=== PATIENT | female | born 1940 | race Caucasian/White ===

== ENCOUNTER 2019-01-25 12:10 | Inpatient (IN) ==
--- NOTE | 2019-01-25 12:58 | Diag Imaging Result Doc PS360 ---
CT HEAD W/O CONTRAST - 01/25/2019 INDICATION: ams COMPARISON: None FINDINGS: There is mild diffuse cerebral atrophy. There is moderate patchy cerebral white matter lucency compatible with chronic microvascular ischemia. No intracranial mass or hemorrhage. The skull is intact. The sinuses, mastoids, and middle ears are clear. IMPRESSION: Cerebral atrophy and chronic appearing microvascular ischemia. No acute process. This exam was performed using automated exposure control, adjustment of mA or kV according to patient size, and/or use of iterative reconstruction technique Electronically signed by Jose Guadalupe De La Garza 01/25/2019 12:56 PM
[2019-01-25] MEDS ORDERED: NS 1,000 ML IV ONE (14:36)
[2019-01-25 14:53] LABS: BASO# 0.19 X1000 (0.0-0.2); BASO% 1.4 % (0.0-0.8); HEMATOCRIT 30.7 % (37.0-47.0); HEMOGLOBIN 11.3 g/dL (12.0-16.0); LYMPH# 4.49 X1000 (1.2-3.4); LYMPH% 32.4 % (20.5-51.1); MCH 30.4 PG (27-31); MCHC 36.8 g/dL (33-37); MCV 82.5 FL (81-99); MONO# 1.04 X1000 (0.11-0.59); MONO% 7.5 % (1.7-9.3); MPV 11.6 FL (7.4-10.4); NEUT# 8.13 X1000 (1.4-6.5); NEUT% 58.7 % (42.2-75.2); PLT 155 X1000 (130-400); RBC 3.72 XMIL (4.2-5.4); RDW 15.3 % (11.5-14.5); WBC 13.85 X1000 (4.8-10.8)
[2019-01-25] MEDS ORDERED: D50W SYRINGE IV ONE (14:58)
[2019-01-25 15:01] LABS: ALB/GLOB RATIO 0.5; CALCIUM 7.4 mg/dL (8.8-10.2); CREATININE 1.7 mg/dL (0.5-0.9); POTASSIUM 3.9 mmol/L (3.5-5.1); TOTAL BILIRUBIN 1.19 mg/dL (0.20-1.00); TOTAL PROTEIN 5.9 g/dL (6.3-8.3)
--- NOTE | 2019-01-25 15:05 | EKG Report ---
Test Performed on : 01/25/2019 1:09:31 PM Test Reason : ams Blood Pressure : / mmHG Vent. Rate : 075 BPM Atrial Rate : 075 BPM P-R Int : 160 ms QRS Dur : 064 ms QT Int : 332 ms P-R-T Axes : 061 058 127 degrees QTc Int : 370 ms Normal sinus rhythm. Low voltage QRS Septal infarct (cited on or before 27-NOV-2018) ST & T wave abnormality, consider inferior ischemia Abnormal ECG When compared with ECG of 27-NOV-2018 16:48, (Unconfirmed) premature atrial complexes. are no longer present T wave inversion now evident in Inferior leads Nonspecific T wave abnormality, worse in Lateral leads Unconfirmed Result
[2019-01-25 15:11] LABS: URINE SOURCE CATH
[2019-01-25 15:13] LABS: BILIRUBIN URINE NEGATIVE (NEGATIVE); BLOOD URINE SMALL (NEGATIVE); COLOR YELLOW; GLUCOSE URINE NEGATIVE (NEGATIVE); KETONE URINE NEGATIVE (NEGATIVE); LEUKOCYTES URINE LARGE (NEGATIVE); NITRITE URINE POSITIVE (NEGATIVE); PROTEIN URINE 50 mg/dL (NEGATIVE); SP GRAVITY URINE 1.014; TURBIDITY URINE TURBID (CLEAR); UROBILINOGEN URINE NORMAL (NORMAL)
[2019-01-25 15:14] LABS: UR EPITHELIAL CELLS <10 /HPF (<10); URINE BACTERIA 4+ /HPF; URINE RBC <10 /HPF (<10); URINE WBC TNTC /HPF (<10)
[2019-01-25] MEDS ORDERED: ROCEPHIN 1 GM in NS 50 ML IV ONE (15:24)
[2019-01-25 15:39] LABS: BASO 1 % (0-1); LYMPHS 10 % (21-51); MONO 3 % (1-9); SEGS 86 % (42-75)
[2019-01-25 15:40] LABS: ANISOCYTOSIS OCCASIONAL; LARGE PLATELETS OCCASIONAL; TARGET CELLS OCCASIONAL
[2019-01-25] MEDS: LACTULOSE PO ONE (15:45)
[2019-01-25] MEDS ORDERED: NS 500 ML IV ONE (16:14)
--- NOTE | 2019-01-25 16:14 | PROVIDER DOCUMENTATION ---
This chart was entered by eSra Joya Scribe, acting as scribe for Pedrito Berry MD. HPI-Neurological Disorder - General Chief Complaint: Altered Mental Status Stated Complaint: AMS Time Seen by Provider: 01/25/19 14:25 Source: patient, family (son) Allergies/Adverse Reactions: Patient Allergies Allergy/AdvReac Type Severity Reaction Status Date / Time pentazocine lactate * Allergy Mild RASH Verified 01/25/19 13:01 [From Talwin] rofecoxib [From Vioxx] Allergy Mild RASH Verified 01/25/19 13:01 sulfamethoxazole Allergy Mild RASH Verified 01/25/19 13:01 [From Septra] trimethoprim [From Septra] Allergy Mild RASH Verified 01/25/19 13:01 Sulfa (Sulfonamide Allergy RASH Verified 01/25/19 13:01 Antibiotics) Home Medications: Home Medication List Medication Instructions Recorded Confirmed Last Taken Type Alprazolam [Xanax Xr] 0.5 mg PO DAILY 01/25/19 01/25/19 Unknown History Gabapentin 300 mg PO BID 01/25/19 01/25/19 Unknown History Hydrocodone Bit/Acetaminophen 1 tab PO Q4H PRN 01/25/19 01/25/19 Unknown History [Hydrocodon-Acetaminoph 7.5-325] Hydrocodone/Acetaminophen [[place] 1 tab PO Q6H PRN PRN 01/25/19 01/25/19 Unknown History 5-325 Tablet] Hydroxyzine HCl 25 mg PO TID 01/25/19 01/25/19 Unknown History Methocarbamol 750 mg PO TID 01/25/19 01/25/19 Unknown History Omeprazole 1 tab PO DAILY 01/25/19 01/25/19 Unknown History Ondansetron HCl [Zofran] 1 tab PO TID PRN 01/25/19 01/25/19 Unknown History Tizanidine [Zanaflex] 1 tab PO TID PRN 01/25/19 01/25/19 Unknown History - History of Present Illness-Neuro Nature of Presenting Problem: 78yof presents to ED by EMS cc AMS. SOn is at bedside and reports pt was last known to be normal around lunch yesterday. He reports pt usually turns phone off in the afternoon to take a nap and when he went to check on her this morning she was confused and weak. Pt denies pain. Pt has hx of back compression fracture 6 weeks ago and pancreatic cancer. Onset/Duration: reports: unsure Timing: reports: still present Approximate time patient was last seen normal?: 12:00 (yesterday) Character of Altered Mental Status: reports: disoriented, confused Any recent trauma/injury?: reports: other (compression fracture to back 6 weeks ago) Review of Systems - Adult - REVIEW OF SYSTEMS - ADULT Constitutional: reports: see HPI, roque. denies: chills, fever Eyes: reports: no symptoms reported Ears, Nose, Mouth & Throat: reports: no symptoms reported Cardiovascular: reports: no symptoms reported Respiratory: reports: see HPI. denies: shortness of breath, wheezing Gastrointestinal: reports: no symptoms reported Genitourinary: reports: no symptoms reported Musculoskeletal: reports: no symptoms reported Integumentary: reports: no symptoms reported Neurological: reports: see HPI, other (AMS) Psychiatric: reports: no symptoms reported Endocrine: reports: no symptoms reported Hematologic/Lymphatic: reports: no symptoms reported Allergic/Immunologic: reports: no symptoms reported All Other Systems: Reviewed and Negative Past History - Adult - PAST MEDICAL HISTORY-ADULT Review of Records: reports: Nursing Assessment Review, Medications Reviewed, Social history reviewed & non-contributory. Major Childhood Illnesses: reports: denies history Cardiovascular: reports: HTN, hyperlipidemia Respiratory: reports: asthma Gastrointestinal: reports: GERD Obstetrical/Gynecological: reports: denies history Genitourinary: reports: denies history Musculoskeletal: reports: denies history Neurological: reports: denies history Endocrine/Immune: reports: thyroid disorder Other Conditions: reports: denies history - PRIOR SURGERIES/PROCEDURES Surgical/Procedure History: reports: appendectomy, orthopedic (extremity) (right knee sx/right hand sx/bladder repair), other (cataract removal, bladder repair, right knee surgery) - IMMUNIZATION STATUS Childhood Immunizations: See Nurse Assessment Flu Vaccine: See Nurse Assessment - FAMILY HISTORY Family History: reviewed, not pertinent - SOCIAL HISTORY Smoking: denies Physical Exam- Neurological - Physical Exam-Neuro Initial Vital Signs Reviewed: Yes General Appearance: alert. negative: anxious, combative Eye Exam: bilateral eye: normal inspection, PERRL HENMT: normocephalic/atraumatic, moist mucous membranes. negative: angioedema Head Injury: no evidence of injury. negative: active bleeding Respiratory: chest non-tender, lungs clear, normal breath sounds. negative: stridor, wheezing Cardiovascular: normal peripheral pulses, regular rate, rhythm, no edema. negative: bradycardia, tachycardia Extremity: normal inspection. negative: deformity Integumentary: normal color. negative: diaphoresis, jaundice Psych/Mental Status: negative: anxious, disheveled Progress - PLAN OF CARE/RESULTS Progress/Plan/Lab Results: Vital Signs - 8 hr 01/25/19 12:22 01/25/19 12:23 01/25/19 12:24 Pulse Rate 72 73 75 Respiratory Rate 18 Blood Pressure 105/88 105/88 O2 Sat by Pulse Oximetry 97 100 100 01/25/19 12:30 01/25/19 12:47 01/25/19 13:00 Pulse Rate 72 75 75 Respiratory Rate Blood Pressure 108/67 O2 Sat by Pulse Oximetry 96 99 98 01/25/19 13:02 01/25/19 13:15 01/25/19 13:30 Pulse Rate 75 75 75 Respiratory Rate Blood Pressure 119/68 O2 Sat by Pulse Oximetry 99 99 97 01/25/19 13:32 01/25/19 13:45 01/25/19 14:00 Pulse Rate 74 74 76 Respiratory Rate Blood Pressure 109/60 O2 Sat by Pulse Oximetry 98 97 97 01/25/19 14:02 01/25/19 14:03 01/25/19 14:15 Pulse Rate 76 75 76 Respiratory Rate 16 Blood Pressure 108/69 108/69 O2 Sat by Pulse Oximetry 99 98 97 Laboratory Results - last 24 hr 01/25/19 01/25/19 01/25/19 12:27 14:15 14:15 WBC 13.85 H RBC 3.72 L Hgb 11.3 L Hct 30.7 L MCV 82.5 MCH 30.4 MCHC 36.8 RDW Std Deviation 15.3 H Plt Count 155 MPV 11.6 H Neut % (Auto) 58.7 Lymph % (Auto) 32.4 [place] % (Auto) 7.5 Eos % (Auto) 0.0 Baso % (Auto) 1.4 H Neut # (Auto) 8.13 H Lymph # (Auto) 4.49 H [place] # (Auto) 1.04 H Eos # (Auto) 0.00 Baso # (Auto) 0.19 Segmented Neutrophils 86 H Lymphocytes 10 L Monocytes 3 Basophils 1 Large Platelets OCCASIONAL Anisocytosis OCCASIONAL Target Cells OCCASIONAL Sodium 129 L Potassium 3.9 Chloride 99 Carbon Dioxide 19 L Anion Gap 11 BUN 19 Creatinine 1.7 H Estimated GFR/1.73 m2 29 BUN/Creatinine Ratio 11 Glucose 70 POC Glucose 60 L Calculated Osmolality 260 Calcium 7.4 L Total Bilirubin 1.19 H AST 42 H ALT 15 Alkaline Phosphatase 134 H Ammonia Total Protein 5.9 L Albumin 2.0 L Globulin 3.9 Albumin/Globulin Ratio 0.5 Urine Source Urine Color Urine Turbidity Urine pH Ur Specific [place] Urine Protein Ur Glucose (Stick) Ur Ketones (Stick) Urine Blood Urine Nitrite Urine Bilirubin Urobilinogen Dipstick Urine Leukocytes Urine WBC (Auto) Urine RBC (Auto) U Epithel Cells (Auto) Urine Bacteria (Auto) 01/25/19 01/25/19 14:43 14:55 WBC RBC Hgb Hct MCV MCH MCHC RDW Std Deviation Plt Count MPV Neut % (Auto) Lymph % (Auto) [place] % (Auto) Eos % (Auto) Baso % (Auto) Neut # (Auto) Lymph # (Auto) [place] # (Auto) Eos # (Auto) Baso # (Auto) Segmented Neutrophils Lymphocytes Monocytes Basophils Large Platelets Anisocytosis Target Cells Sodium Potassium Chloride Carbon Dioxide Anion Gap BUN Creatinine Estimated GFR/1.73 m2 BUN/Creatinine Ratio Glucose POC Glucose Calculated Osmolality Calcium Total Bilirubin AST ALT Alkaline Phosphatase Ammonia 161 H Total Protein Albumin Globulin Albumin/Globulin Ratio Urine Source CATH Urine Color YELLOW Urine Turbidity TURBID Urine pH 6.0 Ur Specific [place] 1.014 Urine Protein 50 A Ur Glucose (Stick) NEGATIVE Ur Ketones (Stick) NEGATIVE Urine Blood SMALL A Urine Nitrite POSITIVE A Urine Bilirubin NEGATIVE Urobilinogen Dipstick NORMAL Urine Leukocytes LARGE A Urine WBC (Auto) TNTC A Urine RBC (Auto) <10 U Epithel Cells (Auto) <10 Urine Bacteria (Auto) 4+ Orders Category Date Time Status Curtis Cath Insertion ORDERED Care 01/25/19 15:[address] HEAD W/O CONTRAST [CT] Stat Exams 01/25/19 12:27 Completed AMMONIA [CHEM] Stat Lab 01/25/19 14:43 Completed CBC WITH ELECTRONIC DIFF [HEME] Stat Lab 01/25/19 14:15 Completed COMPREHENSIVE METABOLIC PANEL [CHEM] Stat Lab 01/25/19 14:15 Completed LACTATE, PLASMA [CHEM] Stat Lab 01/25/19 16:14 Uncollected PT [PROTIME WITH INR] [COAG] Stat Lab 01/25/19 14:15 Received PTT [COAG] Stat Lab 01/25/19 14:15 Received URINALYSIS W/POSS RFLX CULT [URINALYSIS] Stat Lab 01/25/19 14:55 Completed URINE CULTURE [RM] Routine Lab 01/25/19 15:52 Received 0.9% Sodium Chloride Inj [Ns] 1,000 ml Med 01/25/19 14:36 Discontinued IV 999 mls/hr 0.9% Sodium Chloride Inj [Ns] 500 ml Med 01/25/19 16:14 Active IV 999 mls/hr CefTRIAXONE [Rocephin] 1 gm Med 01/25/19 15:24 Discontinued 0.9% Sodium Chloride Inj [Ns] 50 ml IV NOW Dextrose 50% Syringe [D50w Syringe] Med 01/25/19 14:58 Discontinued 50 ml IV NOW ONE Lactulose Med 01/25/19 15:45 Discontinued 30 ml PO NOW ONE EKG [EKG] Stat Ther 01/25/19 14:24 Draft Result Diagrams: 01/25/19 14:15 01/25/19 14:15 - EKG 1 Time of EKG reading by physician:: 13:09 EKG Read and Signed by:: Pedrito Berry EKG Interpretation (*Must complete 3 of following elements*): Abnormal (septal infarct; ST & T wave abnormailty, consider inferior ischemia) Rate: 75 Rhythm: nsr QRS: other (low voltage) - CT/MRI 1 CT Study: Head Impression: See EMR Report (MPRESSION: Cerebral atrophy and chronic appearing microvascular ischemia. No acute process. This exam was performed using automated exposure control, adjustment of mA or kV according to patient size, and/or use of iterative reconstruction technique Electronically signed by Jose Guadalupe De La Garza 01/25/2019 12:56 PM) - CONSULTS/PCP/HOSPITALIST Notification #1 *Consult/PCP/Hospitalist*: Tracey/HORTENCIA Time Discussed: 16:11 Consult Disposition: Admit (accepted pt) Departure - Departure Date of Disposition Decision: 01/25/19 Time of Disposition Decision: 16:13 DIAGNOSIS: Dehydration, Mass of pancreas, UTI (urinary tract infection), Serum ammonia increased Disposition: ADMITTED INPATIENT 09 Certified Medical Emergency: Emergent Condition: Fair Referrals and Follow-Ups: Toro Anderson MD [Primary Care Provider] - - Critical Care Note This patient required my direct & personal management of CC.: No Attestation - Physician/ YOSI Attestation Patient care was provided by Advanced Practice Provider:: No The physician spent face to face time with patient:: Yes Advanced Practice Provider documentation review:: Supervising physician onsite and consulted in the evaluation and care of this patient. The physician did have a face to face encounter with the patient. This chart was documented by the indicated scribe, (Sera Joya Scribe) and accurately reflects the services I performed and decisions made by me, Pedrito Berry MD, as attested by the provider's signature.
[2019-01-25 16:34] LABS: INR 1.89; PROTIME 22.2 Seconds (11.0-16.0); PTT 60.9 Seconds (22.3-41.8)
[2019-01-25] MEDS: KAYEXALATE PR ONE (16:43)
[2019-01-25] MEDS ORDERED: LACTULOSE PO ONE (17:16)
[2019-01-25] MEDS ORDERED: TYLENOL PO PRN (18:44)
[2019-01-25] MEDS: NS 1,000 ML IV SCH (19:39)
[2019-01-25] MEDS: FLAGYL 500 MG/NS 500 MG/100 ML IVPB IV SCH (20:37)
[2019-01-25] MEDS ORDERED: LACTULOSE MISC SCH (21:00)
--- NOTE | 2019-01-25 21:48 | HISTORY AND PHYSICAL ---
ADDENDUM: This patient is 78 years old. She has a complicated history associated with pancreatic cancer, for which she completed chemotherapy and she has had a Whipple procedure in the past. All of this has been accomplished in the [place] area at [facility]. Dr. Julien, I believe, is her oncologist, and that was several months ago, beginning of the year. Most recently, she has had a compression fracture about 6 weeks ago, and then she had kyphoplasty. Her son is unsure where it happened. He says it may have happened locally, but it could have also happened in the [facility]. No known liver issues. In the last 24 hours or since this morning, she took a nap and then was confused, weak, and was brought in for evaluation. She is jaundiced. She has elevated ammonia level. She is hypotensive, confused, coagulopathic, renal insufficiency, hyponatremic, UTI. On exam, she is pale and somewhat diaphoretic, although no fever, and has had progression in her hypotension despite IV fluids. WORKUP: 1. Hypotensive, transient, which may be related to sepsis versus dehydration. She does have a source of infection with a urinary tract infection. We will continue volume resuscitation and pressors if necessary, which I think may be necessary. Her renal insufficiency and liver dysfunction may also be consistent with transient hypotension and ischemic shock. 2. Acute liver injury. She does have abnormalities in her liver enzymes. Per her son, part of her liver was resected as part of the Whipple. Not sure at this point if there is recurrence, or if this is related to other issues, but she is hyperammonemic. We will treat with lactulose and Xifaxan once we are able to give her p.o. medications. We will give her Flagyl in the meantime. We will check abdominal ultrasound and follow number. We will continue intravenous fluids. Check urine electrolytes. Ultrasound is ordered. 3. Urinary tract infection. We will treat empirically with antibiotics. We will use cefepime in addition to Flagyl just because Rocephin has biliary issues. 4. Disposition. Condition is guarded. We will also get a GI opinion. Check a Tylenol level. This was a [id number] encounter with Dagmar Moy. cc: Mo Akhtar MD
--- NOTE | 2019-01-25 22:03 | HISTORY AND PHYSICAL ---
CHIEF COMPLAINT: Altered mental status. HPI: This is a 78-year-old female with a history of pancreatic cancer status post Whipple and with completed treatment in [place]. She presented to the emergency room via EMS with family members stating that she has been altered for the last 24 hours with the son stating that normally she turns her phone off to go to sleep the afternoon but today they could not get hold of her checked on her and found her altered. She was found to have an ammonia level of 161. PAST MEDICAL HISTORY: 1. Pancreatic cancer status post Whipple and completed treatment. 2. Recent compression fracture to the back. 3. Hypertension. 4. Hyperlipidemia. 5. Hypothyroid. PAST SURGICAL HISTORY: Hysterectomy, bladder surgery, cataract surgery, right knee surgery and Whipple. ALLERGIES: Vioxx, Ditropan and sulfa. CURRENT MEDICATIONS: A list will be obtained by the nursing staff and once verified will review and restart as appropriate. FAMILY HISTORY: There is no history of coronary artery disease or renal disease. REVIEW OF SYSTEMS: Unable to obtain due at present from patient, the son stated that she had no recent complaints. PHYSICAL EXAMINATION: A 78-year-old lady who is sitting up in the stretcher in the emergency room in no distress. VITAL SIGNS: Blood pressure is 113/69 with a heart rate of 74, respirations are 18, O2 saturations are 98-100%. HEENT: Pupils equal, round, react to light. EOMs are intact, sclerae anicteric. Head is normocephalic, atraumatic. Mucous membranes are moist. NECK: Supple with trachea midline. CARDIOVASCULAR: Regular rate and rhythm. S1 and S2 are appreciated. Has no lower extremity edema. Peripheral pulses are palpable x4 extremities. PULMONARY: Breath sounds are clear with no increased work of breathing noted. Chest rise falls symmetric respiration. GASTROINTESTINAL: Soft, nontender, nondistended with bowel sounds in all 4 quadrants. LABS: Hemoglobin 13.8 with hemoglobin 11.3, hematocrit 30.7, platelets 155,000. Sodium 129, potassium 3.9, BUN 19, creatinine 1.7, glucose of 60, ammonia is 161. Blood cultures and urine culture pending. CT of the head revealed cerebral atrophy and chronic appearing microvascular ischemia. No acute process. ASSESSMENT AND PLAN: 1. Pancreatic cancer status post Whipple and completed treatment. 2. Compression fracture approximately 6 weeks ago. 3. Hypertension, causes could be multifactorial, sepsis with a urine source versus dehydration. 4. Possible urinary tract infection. 5. Acute kidney injury. 6. Elevated ammonia levels. 7. Hypothyroid. 8. Hypotension. PLAN: The patient will be admitted to ICU for close monitoring. Will place her on telemetry, IV hydration with antibiotic coverage of Flagyl and cefepime. check urine electrolytes. Further treatments pending hospital course. Plan was discussed with Dr. Akhtar. Dictated by SUHA Moy for Mo Akhtar MD cc: SUHA Moy MD [facility]
[2019-01-25] MEDS: NON-FORMULARY MED PR SCH (23:25)
[2019-01-26] MEDS: FLAGYL 500 MG/NS 500 MG/100 ML IVPB IV SCH ×2 (02:33→08:24)
[2019-01-26] MEDS ORDERED: D50W SYRINGE IV PRN (03:34)
[2019-01-26] MEDS ORDERED: D50W SYRINGE IV ONE ×2 (03:37→03:42)
[2019-01-26] MEDS: NS 1,000 ML IV SCH (04:08)
[2019-01-26 05:29] LABS: INR 2.07; PROTIME 23.8 Seconds (11.0-16.0)
[2019-01-26 05:42] LABS: BASO# 0.01 X1000 (0.0-0.2); BASO% 0.1 % (0.0-0.8); HEMATOCRIT 27.4 % (37.0-47.0); HEMOGLOBIN 9.6 g/dL (12.0-16.0); MCH 28.9 PG (27-31); MCV 82.5 FL (81-99); MPV 10.9 FL (7.4-10.4); PLT 132 X1000 (130-400); RBC 3.34 XMIL (4.2-5.4); RDW 15.4 % (11.5-14.5); WBC 6.95 X1000 (4.8-10.8)
[2019-01-26 06:01] LABS: ALB/GLOB RATIO 0.4; ALBUMIN 1.6 g/dL (3.5-5.0); CALCIUM 7.1 mg/dL (8.8-10.2); CREATININE 1.5 mg/dL (0.5-0.9); POTASSIUM 3.3 mmol/L (3.5-5.1); TOTAL BILIRUBIN 0.87 mg/dL (0.20-1.00); TOTAL PROTEIN 5.3 g/dL (6.3-8.3)
[2019-01-26 07:21] LABS: BANDS 2 % (0-1); LARGE PLATELETS 2+; LYMPHS 14 % (21-51); MONO 2 % (1-9); SEGS 82 % (42-75)
[2019-01-26] MEDS: VITAMIN K 10 MG in NS 50 ML IV SCH (08:24)
[2019-01-26] MEDS: NON-FORMULARY MED PR SCH (09:53)
[2019-01-26] MEDS: CLINIMIX E 4.25%-5% SOLUTION 1,000 ML IV SCH (13:03)
[2019-01-26] MEDS: XIFAXAN PO SCH ×2 (13:04→21:24)
--- NOTE | 2019-01-26 13:07 | Diag Imaging Result Doc PS360 ---
CHEST-PORTABLE - 01/26/2019 INDICATION: dyspnea COMPARISON: 11/27/2018 FINDINGS: There is a stable left chest port in good position. The lungs are clear. Heart size is normal. No pneumothorax or pleural effusion. IMPRESSION: Negative exam. Electronically signed by Jose Guadalupe De La Garza 01/26/2019 1:04 PM
--- NOTE | 2019-01-26 13:12 | PROGRESS NOTE ---
DATE: 01/26/2019 SUBJECTIVE: The patient has no major complaints. OBJECTIVE: Vital Signs: Blood pressure is stable, has improved to 118/71, heart rate of 69, respiratory rate 16, temperature 97.7 degrees, saturating 100% on room air. Cardiovascular: Regular rate and rhythm. Pulmonary: Bilateral breath sounds. Clear to auscultation GI: Soft, nontender, nondistended. Bowel sounds are positive. Extremities: No clubbing or cyanosis. Lymphatic: No peripheral edema. Neurological: Nonfocal. LABORATORY DATA: White count is down to 6, hemoglobin and hematocrit 9 and 27 with normocytic indices, platelets of 132,000. INR is up to 2. Potassium is 3.3, creatinine is 1.5. AST of 33. Albumin is down to 1.6. Her ammonia level has come down. PROBLEM LIST: 1. Sepsis presumably, possibly a urinary source. I do not have a culture yet, but on urinalysis, she had gross pyuria and nitrate positive, so I think that is a likely source. We need to get a chest x-ray. We will continue antibiotics, and follow closely. 2. Acute liver injury or acute hepatitis. It is not clear if she has any liver injury in the past. Clinically, she is acting like she has cirrhosis with hypoalbuminemia, hyperammonemia, elevated INR, or at least some degree of liver dysfunction. She has no alcohol history. I have consulted Gastroenterology, and Dr. Gutierrez has ordered several tests. I am going to switch her to a CT of the abdomen and pelvis with oral contrast, only just because I want to look at her pancreatic situation a little bit more clearly since she has had surgery. Supposedly, she is cancer-free, but we also need to evaluate for liver metastases, which she has not had previously. Will also check a CA19-9. We are giving her Flagyl, but I suppose we can switch her to Xifaxan. 3. Urinary tract infection. She is on Rocephin. Will continue to monitor. I had recommended cefepime, but will see. I do not think she has got any gallbladder issues. 4. Coagulopathy. She is getting vitamin K. Will continue to monitor that. 5. Disposition. We need to get old records to see where things have gone. She sees Dr. Best Julien in [place], who is her primary oncologist. She does not have a local oncologist, so we will continue to monitor. cc: Mo Akhtar MD
[2019-01-26] MEDS: ZOFRAN IV PRN ×2 (13:31→21:31)
[2019-01-26] MEDS: MORPHINE IV PRN ×2 (14:30→21:38)
--- NOTE | 2019-01-26 14:40 | Diag Imaging Result Doc PS360 ---
EXAM: CT ABD/PELVIS W/ORAL CONT ONLY 01/26/2019 HISTORY: evaluate for cirrhosis, hx pancreatic cancer TECHNIQUE: This exam was performed using automated exposure control, adjustment of mA or kV according to patient size, and/or use of iterative reconstruction technique. COMMENT: The current study is compared with the previous examination of 02/13/2018. There is a hiatal hernia. There is a small left and even smaller right pleural effusions. These were not present on 02/13/2018. There is marked hepatic steatosis. This is worse than on the previous study. There is ascites which was not the case previously. The spleen is not enlarged. The adrenal glands are not enlarged. The kidneys are without evidence of hydronephrosis or nephrolithiasis. The aorta is not distended but is heavily calcified. There has apparently been a Whipple procedure. There is some pneumobilia in the left hepatic lobe. There is oral contrast throughout much of the small bowel and some in the cecum. There is diverticulosis in the sigmoid colon without definite diverticulitis. The urinary bladder is not distended and there is a Curtis catheter in the bladder. There is subcutaneous edema generally consistent with anasarca. There are no acute bony abnormalities. There has been previous kyphoplasty at L1. IMPRESSION: 1. Ascites, small pleural effusions, and anasarca. 2. Severe hepatic steatosis. 3. Diverticulosis coli. Electronically signed by Horacio Olivas 01/26/2019 2:38 PM
[2019-01-26] MEDS ORDERED: ROCEPHIN 1 GM in NS 50 ML IV SCH (15:00)
[2019-01-26] MEDS ORDERED: ZANAFLEX PO PRN (15:51)
[2019-01-26] MEDS ORDERED: VANCOMYCIN IV PER PHARMACY MISC SCH (16:00)
[2019-01-26] MEDS ORDERED: VANCOMYCIN 1,500 MG in NS 250 ML IV ONE (18:00)
[2019-01-26] MEDS: LACTULOSE PO SCH (21:23)
[2019-01-26] MEDS: NEURONTIN PO SCH (21:24)
[2019-01-27] MEDS ORDERED: ALBUMIN 25% IV ONE (00:03)
[2019-01-27] MEDS: CLINIMIX E 4.25%-5% SOLUTION 1,000 ML IV SCH ×2 (01:05→08:10)
[2019-01-27] MEDS: ZOFRAN IV PRN ×2 (01:50→08:08)
[2019-01-27] MEDS ORDERED: ROCEPHIN 1 GM in NS 50 ML IV SCH (03:00)
[2019-01-27 07:02] LABS: ALB/GLOB RATIO 0.8; ALBUMIN 2.5 g/dL (3.5-5.0); CALCIUM 7.9 mg/dL (8.8-10.2); CREATININE 1.2 mg/dL (0.5-0.9); MAGNESIUM 1.7 mg/dL (1.5-2.7); PHOSPHORUS 2.9 mg/dL (2.7-4.5); POTASSIUM 3.2 mmol/L (3.5-5.1); TOTAL BILIRUBIN 0.96 mg/dL (0.20-1.00); TOTAL PROTEIN 5.7 g/dL (6.3-8.3)
[2019-01-27 07:09] LABS: BASO# 0.02 X1000 (0.0-0.2); BASO% 0.3 % (0.0-0.8); HEMATOCRIT 24.8 % (37.0-47.0); HEMOGLOBIN 8.6 g/dL (12.0-16.0); LYMPH# 2.51 X1000 (1.2-3.4); LYMPH% 33.2 % (20.5-51.1); MCH 29.8 PG (27-31); MCHC 34.7 g/dL (33-37); MCV 85.8 FL (81-99); MONO# 1.05 X1000 (0.11-0.59); MONO% 13.9 % (1.7-9.3); MPV 10.8 FL (7.4-10.4); NEUT# 3.98 X1000 (1.4-6.5); NEUT% 52.6 % (42.2-75.2); PLT 120 X1000 (130-400); RBC 2.89 XMIL (4.2-5.4); RDW 15.5 % (11.5-14.5); WBC 7.56 X1000 (4.8-10.8)
--- NOTE | 2019-01-27 07:48 | GASTROENTEROLOGY CONSULTATION ---
DATE: 01/26/2019 REASON FOR CONSULTATION: Hepatic encephalopathy, abnormal LFTs, and rule out acute liver failure. HISTORY OF PRESENT ILLNESS: Ms. Zulma Busby is a 78-year-old woman with past medical history of pancreatic cancer status post chemotherapy and Whipple in the past as well as reported partial hepatectomy, hypertension, hyperlipidemia, and hypothyroidism, who presented yesterday with altered mental status. History obtained from the medical record given patient's altered mental status. Per report, the patient was noted to be altered over the last 24 hours. Family in the ER, reported the patient was normal up until about lunch to 2 days ago. On presentation, she was found to be altered with normal vital signs, and found to have elevated ammonia up to 461. Head CT was negative for acute intracranial hemorrhage or stroke. REVIEW OF SYSTEMS: Unable to obtain given patient's altered mental status. PAST MEDICAL HISTORY: History of pancreatic cancer status post Whipple and partial hepatectomy, hypertension, hyperlipidemia, hypothyroidism, and history of compression fracture requiring kyphoplasty. PAST SURGICAL HISTORY: Hysterectomy and bladder surgery, cataract surgery, right knee surgery, Whipple and kyphoplasty. HOME MEDICATIONS: 1. [place]. 2. Hydroxyzine. 3. Methocarbamol. 4. Omeprazole. 5. Zofran. 6. Xanax. 7. Gabapentin. 8. Tizanidine. ALLERGIES: 1. Vioxx. 2. Ditropan. 3. Sulfa. FAMILY HISTORY: Unable to obtain. SOCIAL HISTORY: Unable to obtain. PHYSICAL EXAMINATION: Vital Signs: Temperature 98.4, heart rate 79, respiratory rate 14, blood pressure 129/71, and O2 saturation 98% on room air. General: The patient is sleepy but arousable. She is alert and oriented x2, not to year, not to date. HEENT: Sclerae anicteric. Moist mucous membranes. Extraocular motor is intact.Neck: Supple. No JVD or lymphadenopathy. Cardiac: Regular rate and rhythm. No murmurs. Lungs: Clear to auscultation bilaterally. No wheezing. Abdomen: Noted surgical scars. Nondistended. Minimal tenderness throughout. Bowel sounds are present. No rebound or guarding. Extremities: No clubbing, cyanosis, or edema. Neurologic: She has some asterixis on exam. LABORATORY: White count of 6.9 from 13.8 yesterday, hemoglobin 9.6 from 11.3 yesterday, platelets of 132,000, 2% bands. INR is 2.0 from 1.89 yesterday. Sodium 133, potassium 3.3, chloride 105, bicarb 17, BUN of 18, creatinine of 1.7, glucose of 106, total bilirubin of 0.87 from 1.19. AST 33, ALT of 13, alkaline phosphatase 112, ammonia 46 from 161, total protein of 5.3, albumin of 1.6, lactate of 1.1, and TSH of 2.47. UA shows large leukocytes and positive nitrates. Tylenol level was negative. IMAGING: Head CT shows no acute process. CT of the abdomen and pelvis show ascites, small pleural effusions, anasarca, severe hepatic steatosis, and diverticulosis coli. Chest x-ray is negative. ASSESSMENT AND PLAN: Ms. Zulma Busby is a 78-year-old woman with history of pancreatic cancer status post Whipple and reported partial hepatectomy, who presents with 1-day history of altered mental status in the setting of urinary tract infection and probable hepatic encephalopathy. CT of the abdomen and pelvis shows new onset ascites and small effusions and anasarca, and severe hepatic steatosis. Labs show abnormal LFTs with a 2 to 1 ratio of AST to ALT. Alkaline phosphatase is minimally elevated. 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 Unknown alcohol history as I am not able to obtain any collateral from family members at bedside. We will check hepatitis panel. However, further chronic liver disease workup will likely be negative given noted fatty liver on imaging. She is on lactulose enemas which we can transition to p.o. as tolerated. She is also on Rifaximin and ceftriaxone for urinary tract infection and vancomycin. I have put her on vitamin K to see if the component of her elevated INR with coagulopathy is related to malnutrition. Continue to treat her urinary tract infection as you are. She is currently on Clinimix which I am in favor of discontinuing while patient is unable to take p.o. Other labs notable, she has a low bicarb, and elevated creatinine from her normal baseline. Recommend giving her some albumin for fluid resuscitation over IV fluids. We will give her 50 g today and reassess. Thank you for this consult. We will follow with you. Please call with any questions or concerns. # Hepatic encephalopathy # Cirrhosis # Coagulopathy # UTI # Severe protein calorie malnutrition # NICHOLAS # Pancreatic cancer [facility]
[2019-01-27] MEDS ORDERED: KLOR-CON PO ONE (07:51)
[2019-01-27] MEDS: LACTULOSE PO SCH ×3 (08:02→23:08)
[2019-01-27] MEDS: NEURONTIN PO SCH ×3 (08:03→23:09)
[2019-01-27] MEDS: XANAX XR PO SCH (08:03)
[2019-01-27] MEDS: XIFAXAN PO SCH ×3 (08:03→23:09)
[2019-01-27] MEDS: VITAMIN K 10 MG in NS 50 ML IV SCH (08:10)
[2019-01-27 08:24] LABS: ANISOCYTOSIS 1+; LYMPHS 32 % (21-51); MICROCYTOSIS 1+; MONO 13 % (1-9); SEGS 55 % (42-75)
[2019-01-27] MEDS: MAXIPIME 1 GM in NS 50 ML IV SCH ×2 (08:31→20:07)
[2019-01-27] MEDS: POTASSIUM CHLORIDE 20 MEQ/SWI 20 MEQ/100 ML IVPB IV SCH ×2 (08:52→10:49)
[2019-01-27] MEDS ORDERED: CALMOSEPTINE OINTMENT TOP PRN (09:22)
[2019-01-27] MEDS: PHENERGAN IV PRN ×2 (09:56→23:26)
[2019-01-27] MEDS: SODIUM CHLORIDE 0.9% INJ PRN (09:56)
[2019-01-27 10:40] LABS: HEPATITIS PROFILE ACUTE SEE COMMENTS
[2019-01-27 11:08] LABS: INR 2.38; PROTIME 26.6 Seconds (11.0-16.0)
--- NOTE | 2019-01-27 11:19 | PROGRESS NOTE ---
DATE: 01/27/2019 SUBJECTIVE: The patient does not have any complaints. According to nursing staff, she is definitely more alert in comparing with yesterday. She said that she is in [facility]. OBJECTIVE: Vital Signs: Temperature 97.9 degrees, heart rate 70, respiratory rate 18, blood pressure 125/69, and O2 saturation 100% on room air. General: This is a chronically ill appearing 78-year-old female lying in bed in no acute distress. Cardiovascular: S1, S2 heard. No murmurs, gallops, or rubs. Regular rate and rhythm. Respiratory: Clear bilaterally to auscultation. No work up breathing or using accessory muscles. Abdomen: Soft. Nondistended. Bowel sounds present. No organomegaly. Extremities: No clubbing or cyanosis. Mild edema in both lower extremities. Neurological: Patient is awake today. Following commands. Moves 4 extremities spontaneously. LABORATORY DATA: White cell count 7.56, hemoglobin 8.6, hematocrit 24.8, and platelets 120,000. BUN 24, potassium 3.2 and creatinine 1.2. Phosphorus and magnesium are okay. The urine culture is positive for gram-negative rods. The blood culture is positive for gram- positive rods as well. ASSESSMENT AND PLAN: 1. Sepsis secondary to UTI. Urine culture show resolved gram-negative rods. The patient has been on ceftriaxone. I prefer to go ahead to change to cefepime considering his history of cancer. White cell count so far has normalized. As mentioned, it was 13.85 and now is 7.56. She is not spiking any fever. We will continue to monitor. Also, the blood cultures is positive 1 out of 2. At this point, we will continue with vancomycin. We will see what the final results of the culture shows. 2. Acute liver injury/acute hepatitis. It is not clear why this patient has cirrhosis, but the CT of the abdomen shows severe hepatic steatosis with ascites, small pleural effusion and anasarca. It looks like this patient could have CASANOVA. The patient is receiving lactulose and rifaximin for hepatic encephalopathy. Gastroenterology has been consulted. We will follow recommendations. 3. History of pancreatic cancer status post Whipple procedure aware. We will continue to monitor. 4. Hepatic encephalopathy. We will continue with rifaximin and lactulose. Clinically, the patient is getting better. 5. Coagulopathy. Will continue providing vitamin K. 6. Acute kidney injury. Creatinine continues to improve. Today is 1.2 and yesterday was 1.5. We will continue with the same management. 7. Disposition. At this point, we will keep this patient in the ICU today for better monitoring. cc: Holden Navarro MD MTDD
[2019-01-27] MEDS: MORPHINE IV PRN ×2 (11:52→23:20)
--- NOTE | 2019-01-27 14:26 | GASTROENTEROLOGY PROGRESS NOTE ---
DATE: 01/27/2019 SUBJECTIVE: Ms. Bedolla, is a 78-year-old female who was lying in bed, nursing care at the bedside. She complained of nausea and generalized abdominal pain. She is unable to tolerate clear liquids. She is on IV fluid clinimix and lipids. OBJECTIVE: Vital Signs: Temperature is 97.8 degrees, pulse is 72, respirations are 18, blood pressure 119/66, oxygen saturation is 98% on room air. General Appearance: She is alert, oriented x3, in no acute distress. HEENT: Pale conjunctivae. No icterus. PERRL. Neck: Supple. Lungs: Clear to auscultation bilaterally. No abnormal breath sounds. Cardiac: Regular rate and rhythm. No murmurs, rubs, or gallops heard on auscultation. Abdomen: Surgical incision, was Whipple procedure. Nondistended. She has generalized tenderness all over the abdomen. Active bowel sounds heard in all 4 quadrants. Extremities: No clubbing, cyanosis. Generalized edema in the lower extremities. Neurologic: Alert, oriented x3. Lab: WBCs 7.56, RBCs 2.89, hemoglobin is 8.6, hematocrit is 24.8, platelet count is 120,000, PT is 26.6, INR is 2.38. Sodium is 136, potassium is 3.2, chloride is 104, carbon dioxide 19, anion gap is 13, BUN is 16, creatinine is 1.2, glucose is 142, calcium is 7.9, phosphorus 2.9, magnesium 1.7. Total bilirubin is 0.96, AST is 27, ALT is 12, alkaline phosphate is 108. Urinalysis from 01/25/2019 showed a trace of protein, small amount of blood, positive nitrites, and large leukocytes. Urine culture was positive for Enterobacter aerogenes. Blood cultures positive for gram-positive rods. Imaging: Chest x-ray showed negative exam. CT of the abdomen and pelvis showed ascites, small pleural effusion, anasarca, severe hepatic steatosis, diverticulosis coli. CT of the head showed cerebral atrophy and chronic appearing microvascular ischemia. No acute process. IMPRESSION AND PLAN: 1. Sepsis. 2. Hepatic encephalopathy. 3. Pancreatic cancer. 4. Status post Whipple procedure at [facility] with Dr Mark Eller. 5. Urinary tract infection. 6. Anemia. 7. Coagulopathy PLAN: Patient is unable to keep her clear liquids. She is on Clinimix at 100 mL per hour and lipids. Antiemetics, Zofran and Phenergan for nausea and vomiting. Antibiotics, Xifaxan, Maxipime and vancomycin for UTI. The patient also has received potassium chloride IV at 50 mL per hour. Patient is getting lactulose ad Xifaxan for hepatic encephalopathy likely resulting from combination of Sepsis and UTI. She is getting Vitamin K 10mg in 50 ml NS IV for her coagulopathy. We will continue to monitor her CBC and BMP, continue to follow the plan of care of her PCP. This plan was discussed with Dr. Yu. Please call for any further questions or concerns. Dictated by SUHA Lei for Andrzej Yu MD cc: Andrzej Yu MD Patient seen and examined myself. I agree with the above plan of care. I have discussed the above with the patient and family at bedside and all questions were answered. Please call us with any further questions. MTDD
[2019-01-28] MEDS: CLINIMIX E 4.25%-5% SOLUTION 1,000 ML IV SCH ×4 (01:10→16:37)
[2019-01-28 06:42] LABS: INR 2.12; PROTIME 24.3 Seconds (11.0-16.0)
[2019-01-28 06:51] LABS: AGAP 6; ALB/GLOB RATIO 0.6; ALBUMIN 1.9 g/dL (3.5-5.0); ALKALINE PHOSPHATASE 91 U/L (32-104); BASO# 0.03 X1000 (0.0-0.2); BASO% 0.4 % (0.0-0.8); BUN 15 mg/dL (8-22); CALCIUM 7.9 mg/dL (8.8-10.2); CHLORIDE 105 mmol/L (98-107); COSMO 268; CREATININE 0.8 mg/dL (0.5-0.9); ESTIMATED GFR > 60; GLUCOSE 112 mg/dL (70-104); GOT 34 U/L (10-30); GPT 12 U/L (10-36); HEMATOCRIT 27.9 % (37.0-47.0); HEMOGLOBIN 9.6 g/dL (12.0-16.0); MCHC 34.4 g/dL (33-37); MCV 84.3 FL (81-99); MPV 10.6 FL (7.4-10.4); PLT 132 X1000 (130-400); RBC 3.31 XMIL (4.2-5.4); SODIUM 133 mmol/L (136-145); TCO2 22 mmol/L (25-35); TOTAL BILIRUBIN 0.88 mg/dL (0.20-1.00); TOTAL PROTEIN 5.2 g/dL (6.3-8.3); WBC 7.14 X1000 (4.8-10.8)
[2019-01-28 08:09] LABS: BANDS 2 % (0-1); LARGE PLATELETS 2+; LYMPHS 34 % (21-51); MONO 4 % (1-9); SEGS 54 % (42-75)
[2019-01-28] MEDS: VITAMIN K 10 MG in NS 50 ML IV SCH (08:52)
[2019-01-28] MEDS: MAXIPIME 1 GM in NS 50 ML IV SCH ×2 (08:52→20:50)
[2019-01-28] MEDS: NEURONTIN PO SCH ×2 (09:17→20:51)
[2019-01-28] MEDS: XANAX XR PO SCH (09:17)
[2019-01-28] MEDS: LACTULOSE PO SCH ×2 (09:17→17:41)
[2019-01-28] MEDS: XIFAXAN PO SCH ×2 (09:18→20:52)
[2019-01-28] MEDS: VANCOMYCIN 1 GM/NS 1 GM/250 ML IVPB IV SCH (10:57)
[2019-01-28] MEDS ORDERED: LACTULOSE MISC SCH ×3 (13:00→17:00)
--- NOTE | 2019-01-28 13:09 | GASTROENTEROLOGY PROGRESS NOTE ---
DATE: 01/28/2019 SUBJECTIVE: Ms. Bedolla 78 year old female, resting in bed, lethargic, not responding to any questions. Family at the bedside. Unable to fully assess the patient. Family mentioned that she has been the same since yesterday afternoon, refusing to eat, c/o nausea and vomiting. OBJECTIVE: Vital Signs: Temperature 98.3 degrees, pulses 70, respirations 15, blood pressure 125/74, and oxygen saturation 98% on room air. Weight 156.4 pounds, BMI 28.7. General: The patient is lethargic, and unable to assist the patient, but in no acute distress. HEENT: Pale conjunctivae. No icterus. PERRLA. Neck: Supple. Lungs: Clear to auscultation bilaterally. No abnormal breath sounds heard. Cardiac: Regular rat e and rhythm. No murmurs, rubs, or gallops heard on auscultation. Abdomen: Surgical incision post Whipple procedure. Nondistended. nontender, no guarding. Active bowel sounds heard in all 4 quadrants. Extremities: No clubbing or cyanosis. Generalized edema in the lower extremities. 2+ pedal pulses present bilaterally. Neurologic: Alert and oriented x 1 LABORATORY AND DIAGNOSTICS: WBCs 7.14, RBC 3.31, hemoglobin is 9.6, hematocrit 27.9, and platelets 132,000.PT is 24.3, INR 2.12. Sodium 133, potassium 4.2, chloride 105, carbon dioxide 22, BUN is 15, creatinine is 0.8, glucose 112, calcium is 7.9, AST is 34, and ALT is 12. Urine culture showed Enterobacter aerogenes, and blood culture showed gram-negative rods. Chest x-ray showed negative exam. Abdomen/pelvis CT showed ascites, small pleural effusion, and an eschar. Severe hepatic steatosis and diverticulosis coli. IMPRESSION AND PLAN: Sepsis Hepatic encephalopathy Pancreatic cancer status post Whipple surgery done in [place] UTI Anemia Coagulopathy PLAN: Patient diet has been advanced to GI soft diet but she is unable to tolerate, has nausea and vomiting per family and nursing staff. She is on IV fluids Clinimix and lipids for nutrition. Zofran and Phenergan for nausea and vomiting. She is unable to take PO lactulose, started her on lactulose enemas TID, also on xifaxan for her hepatic encephalopathy. She is getting vitamin K 10 mg 50 mL. for coagulopathy, we will continue to monitor CBC and BMP, continue to follow the plan of care of the primary care team. and would recommend consult for infectious disease team for her sepsis. This plan was discussed with Dr. Gutierrez. Please call us for any further questions or concerns. Dictated by SUHA Lei for Arnie Gutierrez MD Physician Attestation I have seen and examined the patient. I have discussed and reviewed the the note by Yvonne BORDEN and agree with findings and plan as documented. In brief, Ms. Zulma Bedolla is a 78 year old woman with history of pancreatic cancer s/p Whipple and partial hepatectomy earlier this year s/p chemotherapy completed 11/2018 who presented with sepsis and hepatic encephalopathy in the setting of UTI and GNR bacteremia. Recommend lactulose enemas if unable to take PO. Titrate for 2-3 BMs daily. Continue Xifaxan. Avoid sedating medications. Continue to treat underlying infection, which likely precipitated encephalopathy. Hyponatremia and NICHOLAS improved with fluid resuscitation. Anemia noted; no overt bleeding. She is coagulopathy and has severe protein calorie malnutrition. MTDD
--- NOTE | 2019-01-28 14:28 | PROGRESS NOTE ---
DATE: 01/28/2019 SUBJECTIVE: This is a 78-year-old with history of pancreatic cancer status Whipple procedure in [place]. Presented to the emergency room with EMS and family member stating that she had altered mental status for the last 24 hours. Her son stating that normally she returns her phone off to go to sleep in the afternoon, but today they could not get a hold of her and checked and found her mental status was altered. PAST MEDICAL HISTORY: 1. Pancreatic cancer status post Whipple procedure and completed treatment chemotherapy. 2. Recent compression fracture of the back. 3. Hypertension. 4. Hyperlipidemia. 5. Hypothyroidism. PAST SURGICAL HISTORY: Hysterectomy, bladder surgery, cataract surgery, right knee surgery and Whipple procedure. Admitted with pancreatic cancer status post Whipple's and completed treatment, history of compression fracture 6 weeks ago, altered mental status. She did have elevated ammonia level. She has a history of hypothyroidism in the past. Abdominal and pelvic CT, ascites, small pleural effusions, anasarca, severe hepatic steatosis and diverticulosis coli. Her chest x-ray on 01/26/2019 was negative. No sign of infiltrates. GI consultation with Dr. Gutierrez, he felt she had pancreatic cancer, status post Whipple, reported partial hepatectomy, 1-day history of altered mental status. She did have an elevated ammonia level. Her labs show LFTs with 2:1 ratio of AST to ALT, alkaline phosphatase is minimally elevated. INR was 2 suggesting a possible alcoholic versus an CASANOVA cirrhosis. We are checking a hepatitis profile. Further chronic liver disease workup likely negative due to fatty liver change on imaging. She has lactose enemas, which we are going to transition to p.o. and she is on rifaximin and ceftriaxone for urinary tract infection, and vancomycin. They put her on some vitamin K to see if the component of elevated INR was related to malnutrition and treating her urinary tract infection. OBJECTIVE: General: On exam today, she is pretty lethargic. She does answer simple questions yes and no. Vital signs: Temperature 97.9 degrees, pulse 73, respirations 14, blood pressure 101/74. HEENT: Pupils are equal round. Lungs: Clear in all lung [place]. Cardiovascular: Regular rhythm and rate without murmur or S3. Abdomen: Soft. Skin: Warm and dry. Urine output: 1700 mL. ASSESSMENT AND PLAN: Sepsis, hepatic encephalopathy, pancreatic cancer status post Whipple procedure at [facility] in [place]. She has anemia and coagulopathy, urinary tract infection. She is able to eat and so advance to soft diet. She is on Clinimix to help with nutrition. She is on antibiotics Mefoxin for hepatic encephalopathy in combination. Feel like the altered mental status, encephalopathy is a combination of hepatic encephalopathy, sepsis and UTI. We are giving her vitamin K 10 mg daily and continue present antibiotics. Have advanced her diet. cc: Son Snow MD
[2019-01-28] MEDS ORDERED: BLISTEX MEDICATED BERRY LIP BALM TOP PRN (14:29)
[2019-01-28] MEDS ORDERED: NON-FORMULARY BULK MED PR PRN (17:06)
[2019-01-28] MEDS ORDERED: VANCOMYCIN 1,300 MG in NS 250 ML IV SCH (18:00)
[2019-01-29] MEDS: CLINIMIX E 4.25%-5% SOLUTION 1,000 ML IV SCH ×4 (00:36→20:16)
[2019-01-29 06:25] LABS: INR 2.15; PROTIME 24.6 Seconds (11.0-16.0)
[2019-01-29 06:35] LABS: AGAP 7; ALB/GLOB RATIO 0.5; ALBUMIN 1.8 g/dL (3.5-5.0); ALKALINE PHOSPHATASE 86 U/L (32-104); BUN 16 mg/dL (8-22); CALCIUM 8.1 mg/dL (8.8-10.2); CHLORIDE 106 mmol/L (98-107); COSMO 274; CREATININE 0.7 mg/dL (0.5-0.9); ESTIMATED GFR > 60; GLUCOSE 109 mg/dL (70-104); GOT 41 U/L (10-30); GPT 11 U/L (10-36); POTASSIUM 4.6 mmol/L (3.5-5.1); SODIUM 136 mmol/L (136-145); TCO2 23 mmol/L (25-35); TOTAL BILIRUBIN 0.98 mg/dL (0.20-1.00); TOTAL PROTEIN 5.1 g/dL (6.3-8.3)
[2019-01-29] MEDS: LACTULOSE PO SCH ×3 (08:00→16:10)
[2019-01-29] MEDS: MAXIPIME 1 GM in NS 50 ML IV SCH ×2 (08:04→20:16)
[2019-01-29] MEDS: NEURONTIN PO SCH ×2 (08:05→20:17)
[2019-01-29] MEDS: XANAX XR PO SCH (08:05)
[2019-01-29] MEDS: XIFAXAN PO SCH ×2 (08:05→20:17)
[2019-01-29] MEDS: VANCOMYCIN 1 GM/NS 1 GM/250 ML IVPB IV SCH (11:07)
--- NOTE | 2019-01-29 11:16 | PROGRESS NOTE ---
DATE: 01/29/2019 SUBJECTIVE: Ms. Bedolla is resting. She apparently was awake and is answering questions. She is sleeping again today. Her [id number] was at the bedside. OBJECTIVE: Vital Signs: Temperature 97.0 degrees, pulse 86, respirations 16, blood pressure 129/70. Eyes: Pupils are equal and round. Lungs: Lungs are clear in all lung [place]. Cardiovascular exam: Regular rhythm and rate without murmur or S3. Abdomen: Soft. Skin: Skin is warm and dry. ASSESSMENT AND PLAN: Sepsis, hepatic encephalopathy, pancreatic cancer status post Whipple's procedure at [facility] in [place]. She has a little bit of anemia, coagulopathy, urinary tract infection possible, so treating that. So, we have advanced her diet. She seems to be improving a little bit. She is on antibiotics for her hepatic encephalopathy. Trying to get her ammonia level down. CURRENT ORDERS: Xanax ER 0.5 mg daily, Clinimix 100 mg every hour, Neurontin 300 mg twice a day, cefepime 1 g q. 12 hours, Xifaxan 550 mg p.o. b.i.d., Zanaflex 4 mg p.o. t.i.d. p.r.n., vancomycin 1 g IV q. 24 hours. cc: Son Snow MD
--- NOTE | 2019-01-29 23:53 | PROVIDER PROGRESS NOTE ---
Progress Note S: No acute overnight events. Patient's mental status waxes and wanes per report. She is not answering questions today but is awake. O: T 98.0 HR 85 RR 18 BP 125/77 O2 98RA GEN: awake, chronically ill appearing, NAD HEENT: anicteric, MMM NECK: supple, no LAD CV: RRR, no murmurs PULM: CTAB anteriorly, no wheezing ABD: mildy distended, BS, mild TTP throughout, no rebound or guarding EXT: no WWP, no c/c NEURO: moving all extremities, patient will not answer orientation questions LABS: 01/29/19 01/29/19 04:30 04:30 INR 2.15 Sodium 136 Potassium 4.6 Chloride 106 Carbon Dioxide 23 L BUN 16 Creatinine 0.7 Glucose 109 H Total Bilirubin 0.98 AST 41 H ALT 11 Alkaline Phosphatase 86 Total Protein 5.1 L Albumin 1.8 L A/P Ms. Zulma Bedolla is a 78 year old woman with history of pancreatic cancer s/p Whipple and partial hepatectomy earlier this year s/p chemotherapy completed 11/2018 who presented with sepsis and hepatic encephalopathy in the setting of Enterobacter UTI and bacteremia. Her mental status has been waxing and waning. She has had some improvement with taking lactulose PO and by enema. She is also on Xifaxan. She may have a component of toxic encephalopathy in the setting of infection on top of her hepatic encephalopathy. Anemia stable without overt bleeding. LFTs downtrending. Coagulopathy unchanged. 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
[2019-01-30] MEDS: CLINIMIX E 4.25%-5% SOLUTION 1,000 ML IV SCH ×2 (06:04→16:22)
[2019-01-30] MEDS: MAXIPIME 1 GM in NS 50 ML IV SCH ×2 (08:46→20:38)
[2019-01-30] MEDS: LACTULOSE PO SCH ×4 (08:46→17:14)
[2019-01-30] MEDS: XANAX XR PO SCH (09:21)
[2019-01-30] MEDS: NEURONTIN PO SCH ×2 (09:21→22:45)
[2019-01-30] MEDS: XIFAXAN PO SCH ×2 (09:21→22:47)
[2019-01-30] MEDS: VANCOMYCIN 1 GM/NS 1 GM/250 ML IVPB IV SCH (11:15)
--- NOTE | 2019-01-30 11:22 | PROVIDER PROGRESS NOTE ---
Progress Note S: No acute overnight events. She continues to be lethargic. She was unable to take her medications this AM. She denies abdominal pain. O: Last Vital Signs Temp 97.6 F 01/30/19 08:32 Pulse 80 01/30/19 08:33 Resp 17 01/30/19 08:33 BP 133/74 01/30/19 08:33 Pulse Ox 96 01/30/19 08:33 Height 5 ft 2 in Weight 160 lb 3.2 oz GEN: lethargic, NAD, answers questions intermittently HEENT: anicteric, MMM NECK: supple, no LAD CV: RRR, no murmurs PULM: CTAB anteriorly, no wheezing ABD: mildy distended, BS, NT, no rebound or guarding EXT: no WWP, no c/c NEURO: moving all extremities, patient will not answer orientation questions LABS: AM labs pending A/P Ms. Zulma Bedolla is a 78 year old woman with history of pancreatic cancer s/p Whipple and partial hepatectomy earlier this year s/p chemotherapy completed 11/2018 who presented with sepsis and hepatic encephalopathy in the setting of Enterobacter UTI and bacteremia. Her mental status has been waxing and waning. She has had some improvement with taking lactulose PO and by enema. She is also on Xifaxan. She may have a component of toxic encephalopathy in the setting of infection. VSS. Order AM labs. If no improvement in mental status with treatment with antibiotics and lactulose, then consider neuro evaluation. Titrate lactulose enemas to have 3-4 BMs daily. 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
[2019-01-30 12:50] LABS: INR 2.11; PROTIME 24.1 Seconds (11.0-16.0)
[2019-01-30 12:56] LABS: AGAP 7; ALB/GLOB RATIO 0.6; ALBUMIN 2.1 g/dL (3.5-5.0); ALKALINE PHOSPHATASE 86 U/L (32-104); BUN 22 mg/dL (8-22); CALCIUM 8.2 mg/dL (8.8-10.2); CHLORIDE 106 mmol/L (98-107); COSMO 274; CREATININE 0.6 mg/dL (0.5-0.9); ESTIMATED GFR > 60; GLUCOSE 116 mg/dL (70-104); GOT 37 U/L (10-30); GPT 11 U/L (10-36); HEMATOCRIT 27.4 % (37.0-47.0); HEMOGLOBIN 9.4 g/dL (12.0-16.0); LYMPH# 4.38 X1000 (1.2-3.4); LYMPH% 47.1 % (20.5-51.1); MCH 29.9 PG (27-31); MCHC 34.3 g/dL (33-37); MCV 87.3 FL (81-99); MONO# 1.05 X1000 (0.11-0.59); MONO% 11.3 % (1.7-9.3); MPV 10.6 FL (7.4-10.4); NEUT# 3.87 X1000 (1.4-6.5); NEUT% 41.6 % (42.2-75.2); PLT 140 X1000 (130-400); POTASSIUM 4.8 mmol/L (3.5-5.1); RBC 3.14 XMIL (4.2-5.4); RDW 16.9 % (11.5-14.5); SODIUM 135 mmol/L (136-145); TCO2 22 mmol/L (25-35); TOTAL BILIRUBIN 0.88 mg/dL (0.20-1.00); TOTAL PROTEIN 5.8 g/dL (6.3-8.3)
[2019-01-30 13:02] LABS: LYMPHS 45 % (21-51); MONO 10 % (1-9); SEGS 45 % (42-75)
[2019-01-30 13:03] LABS: ANISOCYTOSIS 1+; LARGE PLATELETS OCCASIONAL; MICROCYTOSIS 1+; POLYCHROM OCCASIONAL
--- NOTE | 2019-01-30 13:38 | PROGRESS NOTE ---
DATE: 01/30/2019 Ms. Bedolla opened her eyes. She is moving all extremities. She seems to be comfortable, breathing comfortably. Temp 97.0 degrees, pulse 86, respirations 17, blood pressure 141/91. Pupils are equal and round. Lungs are clear in all lung [place]. Cardiovascular regular rhythm and rate without murmur or S3. Abdomen is soft. Skin is warm and dry. Urine output is 2400 mL. ASSESSMENT AND PLAN: 1. A 78-year-old with history of pancreatic cancer status post Whipple with partial hepatectomy earlier this year, status post chemotherapy completed on 12/14/2018, presented with sepsis and hepatic encephalopathy in the setting of Enterobacter UTI bacteremia. Her mental status has been waxing and waning. She seems a little more alert today with taking lactulose p.o. and by enema and also on Xifaxan. She may have a component of toxic encephalopathy instead of infection. Continue present measures. 2. 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 3. Pancreatic cancer. 4. UTI. 5. Enterobacter bacteremia. 6. Anemia. 7. Coagulopathy. 8. Severe protein calorie malnutrition. 9. We will continue present orders. I do not see any changes. She is on Clinimix 100 mL every hour, getting cefepime 1 g q. 12 hours, lactulose 30 mL p.o. t.i.d., Neurontin 300 mg b.i.d., Xifaxan 550 mg p.o. b.i.d., Zanaflex 4 mg p.o. t.i.d., vancomycin 1 g q. 24 hours. cc: Son Snow MD
[2019-01-31] MEDS: DUONEB (A & A) INH PRN (01:02)
[2019-01-31] MEDS: CLINIMIX E 4.25%-5% SOLUTION 1,000 ML IV SCH ×4 (01:10→17:03)
--- NOTE | 2019-01-31 06:35 | Diag Imaging Result Doc PS360 ---
CHEST-PORTABLE - 01/31/2019 INDICATION: Wheezing COMPARISON: 01/26/2019 FINDINGS: Stable left chest port in good position. Stable low lung volumes. The lungs are clear. Heart size is normal. No pneumothorax or pleural effusion. IMPRESSION: Negative exam. Electronically signed by Jose Guadalupe De La Garza 01/31/2019 6:33 AM
[2019-01-31] MEDS: MAXIPIME 1 GM in NS 50 ML IV SCH ×2 (08:13→20:11)
[2019-01-31] MEDS: LACTULOSE PO SCH ×3 (08:14→16:40)
[2019-01-31] MEDS: XIFAXAN PO SCH ×2 (08:32→20:11)
[2019-01-31] MEDS: XANAX XR PO SCH (08:32)
[2019-01-31] MEDS: NEURONTIN PO SCH ×2 (08:32→20:11)
[2019-01-31] MEDS: VITAMIN K 10 MG in NS 50 ML IV SCH (11:10)
[2019-01-31] MEDS: VANCOMYCIN 1 GM/NS 1 GM/250 ML IVPB IV SCH (11:11)
[2019-01-31] MEDS: PROTONIX IV SCH ×2 (11:14→21:45)
--- NOTE | 2019-01-31 13:56 | HEMO/ONC CONSULTATION ---
DATE: 01/31/2019 REASON FOR CONSULTATION: History of pancreatic cancer. HISTORY OF PRESENT ILLNESS: This is a 78-year-old female with a history of pancreatic cancer, status post Whipple. The patient completed treatment in [place] on 12/14/2018. She presented to the emergency room on 01/25/2019 by EMS. The patient found to be altered. In the ER, she had an ammonia level of 151. The patient was admitted to the ICU and subsequently had a gastroenterology consult. It was found that the patient most likely has sepsis from hepatic encephalopathy in the setting of Enterobacter UTI and bacteremia. The patient has continued to improve. GI is concerned that the patient may have cirrhosis of the liver and they wanted Dr. Andrea consulted to evaluate if the AMS is cancer-related or not. The patient does have an oncologist at [place]. PAST MEDICAL HISTORY: 1. Pancreatic cancer, status post Whipple and completed treatment. 2. Recent compression fracture of the back. 3. Hypertension. 4. Hyperlipidemia. 5. Hypothyroid. PAST SURGICAL HISTORY: Hysterectomy, bladder surgery, cataract surgery, right knee surgery, and Whipple. ALLERGIES: Vioxx, Ditropan, sulfa, [place]win. HOME MEDICATIONS: Xanax XR, gabapentin, hydrocodone 7.5, hydroxyzine, methocarbamol, omeprazole, ondansetron, Zanaflex. REVIEW OF SYSTEMS: Unable to obtain due to the patient's altered mental status. PHYSICAL EXAMINATION: Vital Signs: Temperature 97.5 degrees, pulse rate 74, respiratory rate 14, blood pressure 135/76, O2 saturation 98% on room air. She appears to be in 0/10 pain. HEENT: Sclerae are anicteric. PERRLA. Oral mucosa is dry. Respiratory: Lungs are clear to auscultation. Normal respiratory effort. Cardiovascular: Normal S1, S2. Heart rate and rhythm regular. GI: Abdomen is soft. Skin: Warm, dry, and intact. LABORATORY: No labs were drawn today. On 01/30/2019, WBCs 9.30, hemoglobin 9.4, hematocrit 27.4, platelet count 140,000. Total bilirubin 0.88. Hepatitis panel negative. RADIOLOGY: Chest x-ray, no abnormalities noted. ASSESSMENT: 1. Pancreatic cancer, status post Whipple and completed treatment, and partial hepatectomy earlier this year in [place]. She presented with sepsis and hepatic encephalopathy in the setting of Enterobacter urinary tract infection bacteremia. We will try to obtain records. 2. Altered mental status. Her mental status has been waxing and waning. She may have a component of toxic encephalopathy instead of infection. 3. 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 4. Urinary tract infection. 5. Enterobacter bacteremia. 6. Anemia. Dictated by SUHA Ward for Luis M Andrea MD cc: Luis M Andrea MD [facility]
--- NOTE | 2019-01-31 15:10 | GASTROENTEROLOGY PROGRESS NOTE ---
DATE: 01/31/2019 SUBJECTIVE: Ms. Bedolla 78 year old female resting in bed, lethargic, unable to assess. Family at the bedside stating that they have not seen any improvement in her for the past few days. She is refusing to eat, has no appetite but has denied any nausea or vomiting, had 1 bowel movement today which was liquid in consistency. OBJECTIVE: Vital Signs: Temperature 97.2 degrees, pulse is 80, respirations of 15, blood pressure is 127/72, oxygen saturation 100% on room air. Her weight is 143 pounds and her BMI is 29 kg/m2. HEENT: Pale conjunctivae. No icterus. PERRL. Neck: Supple. Lungs: Clear to auscultation bilaterally. No abnormal breath sounds heard. Cardiac: Regular rate and rhythm. No murmurs, gallops, or rubs heard on auscultation. Abdomen: Surgical incision post Whipple procedure, nondistended, nontender, No guarding. Active bowel sounds heard in all 4 quadrants. Extremities: No clubbing, no cyanosis. Generalized edema in the lower extremities. 2+ pedal pulses present bilaterally. Neurologic: Unable to assess LABORATORY DATA: WBC 9.30, RBC 3.4, hemoglobin is 9.4, hematocrit is 27.4, platelet count is 140,000. Her PT is 24.1, INR is 2.11. Sodium is 135, potassium is 4.8, chloride 103, carbon dioxide 22, anion gap is 7, BUN is 22, creatinine is 6. Her glucose is 116, calcium is 8.2, AST 37, ALT 11, alkaline phosphatase is 86. Chest x-ray showed negative exam. IMPRESSION AND PLAN: 1. Sepsis. 2. Hepatic encephalopathy. 3. Pancreatic cancer, status post Whipple surgery done in [place] s/p chemotherapy ending in 12-13. 4. Urinary tract infection. 5. Anemia. 6. Coagulopathy 7. Malnutrition PLAN: The patient is not able to tolerate her diet.We will continue with IV fluids, Clinimix, and lipids. Her nausea and vomiting has been improved, we will continue her Zofran and Phenergan PRN. She is on lactulose enema 3 times a day p.r.n., and she has p.o. 30 mL for her hepatic encephalopathy. She is also receiving Xifaxan 550 mg BID for her hepatic encephalopathy, antibiotics, vancomycin and Maxipime for sepsis. We have placed an oncology consult for her pancreatic cancer. Started her on Vitamin K 10 mg in 50 ml NS IV for her coagulopathy, and start GI prophylaxis with Protonix 40 mg IV BID as patient is slowly dropping Hc. We would suggest having a neurology consult, her neuro status is not improving /declining. We will continue to monitor her CBC and BMP ,continue to follow the plan of care of the primary care provider and the oncology team. This plan was discussed with Dr. Yu. Please call us for any further questions or concerns. Dictated by SUHA Lei for Andrzej Yu MD cc: Andrzej Yu MD I have seen and examined the patient myself and I agree with the above plan of care. I have discussed the above with the patient's family at bedside and all questions were answered. Please call us with any further questions MTDD
--- NOTE | 2019-01-31 18:20 | PROGRESS NOTE ---
DATE: 01/31/2019 SUBJECTIVE: Mrs. Drew was awake, and she was understanding so answering questions, moving all extremities. OBJECTIVE: Vital signs: Temperature 98.0 degrees, pulse 90, respirations 14, blood pressure 146/85. Eyes: Pupils are equal and round. Lungs: Clear in all lung [place]. Cardiovascular exam: Regular rhythm and rate without murmur or S3. Abdomen: Soft. Skin: Warm and dry. ASSESSMENT AND PLAN: 1. Pancreatic cancer status post Whipple's, completed treatment, partial hepatectomy earlier in the year presented with sepsis, hepatic encephalopathy, Enterobacter urinary tract infection. 2. Altered mental status, multifactorial, seems to maybe see a little improvement, does wax and wane. Treating her for hepatic encephalopathy with lactulose and Xifaxan. 3. It appears that she has probable nonalcoholic steatohepatitis cirrhosis. 4. Urinary tract infection. 5. Enterobacter bacteremia. 6. Anemia. 7. Coagulopathy. 8. Severe protein calorie malnutrition. I do not see anything to change at this point. cc: Son Snow MD
[2019-01-31] MEDS ORDERED: BENADRYL PO PRN (22:33)
[2019-02-01] MEDS: CLINIMIX E 4.25%-5% SOLUTION 1,000 ML IV SCH ×3 (07:06→20:02)
--- NOTE | 2019-02-01 10:02 | PROGRESS NOTE ---
DATE: 02/01/2019 SUBJECTIVE: Ms. Bedolla is awake. She said good morning. She is alert and oriented. She ate a little bit of breakfast. OBJECTIVE: Temperature 98.5 degrees, pulse 85, respirations 16, and blood pressure 137/89. Pupils are equal and round. Lungs are clear in all lung [place]. Regular rhythm and rate without murmur or S3. Urine output was 3400 mL. ASSESSMENT AND PLAN: 1. Pancreatic cancer status post Whipple's, completed treatment. Partial hepatectomy, and earlier in the year presented with sepsis. Hepatic encephalopathy, multifactorial. She has Enterobacter urinary tract infection. Overall doing much better. 2. Altered mental status. She is awake and improving. She is pleasant. 3. Probable non alcoholic steatohepatitis cirrhosis. 4. Urinary tract infection. 5. Enterobacter bacteremia. 6. Anemia. 7. Coagulopathy. 8. Severe protein calorie malnutrition. Encourage p.o. intake. She is on a soft diet. She is getting Clinimix 75 mL an hour. She is on cefepime 1 g q.12. She has Dilantin, which is running an IV and rifaximin 550 mg b.i.d. 9. Vancomycin 1 g IV q.24 hours. cc: Son Snow MD
[2019-02-01] MEDS: NEURONTIN PO SCH ×2 (10:06→20:02)
[2019-02-01] MEDS: SODIUM CHLORIDE 0.9% INJ SCH ×2 (10:06→20:02)
[2019-02-01] MEDS: MAXIPIME 1 GM in NS 50 ML IV SCH ×2 (10:06→20:02)
[2019-02-01] MEDS: XANAX XR PO SCH (10:06)
[2019-02-01] MEDS: XIFAXAN PO SCH ×2 (10:06→20:02)
[2019-02-01] MEDS: PROTONIX IV SCH ×2 (10:06→20:02)
[2019-02-01] MEDS: VITAMIN K 10 MG in NS 50 ML IV SCH (10:16)
[2019-02-01] MEDS: LACTULOSE PO SCH ×3 (10:16→17:55)
[2019-02-01] MEDS: VANCOMYCIN 1,500 MG in NS 250 ML IV SCH (12:33)
--- NOTE | 2019-02-01 14:49 | GASTROENTEROLOGY PROGRESS NOTE ---
DATE: 02/01/2019 SUBJECTIVE: Ms. Bedolla is a 78-year-old, female resting in bed. She was alert and oriented x2. Family at the bedside stated that she has been more responsive and was feeling better since last evening. She has been talking and she was able to eat a few bites of her breakfast. She denied any nausea or vomiting. She had a couple of bowel movements, which were liquid in consistency. OBJECTIVE: Vital Signs: Temperature 98.0 degrees, pulse was 90, respirations are 18, blood pressure is 118/87, oxygen saturation is 99 on room air. Her weight is 178.8 pounds. BMI is 32.8 kg/m2. General: She is alert, oriented x2, and in no acute distress. HEENT: There is pale conjunctivae and no icterus. PERRLA. Neck: Supple. Lungs: Clear to auscultation bilaterally. Normal breath sounds heard. Cardiac: Regular rate and rhythm. No murmurs, rubs, or gallops heard on auscultation. Abdomen: Surgical incision post Whipple procedure. Soft, Nondistended, nontender. No guarding. Bowel sounds heard in all 4 quadrants. Extremities: No clubbing, cyanosis. Generalized edema in the lower extremities. 2+ pedal pulses present bilaterally. Neurologic: Alert and oriented x2. Labs: WBCs 9.30, RBCs 3.14, hemoglobin is 9.4, hematocrit is 27.4, platelet count is 140,000. PTT is 24.1, INR is 2.11. Sodium 135, potassium 4.8, chloride 106, carbon dioxide 22, anion gap is 7, BUN is 22, creatinine is 6, glucose is 116. These labs are from 01/30/2019. Imaging: Chest x-ray showed negative exam. IMPRESSION: 1. Sepsis. 2. Hepatic encephalopathy. 3. Pancreatic cancer S/P Whipple surgery done in [place] 4. Urinary tract infection. 5. Anemia. 6. Severe protein malnutrition. 7. Coagulopathy PLAN: The patient was able to tolerate her breakfast. She had a few bites of food and denied any nausea or vomiting. We will continue with IV fluids, Clinimix, lipids for her nutrition. Her nausea and vomiting have been improved but we still continue Zofran and Phenergan PRN. She is on lactulose and Xifaxan for her encephalopathy. Her neurological status has been improving. She is alert and oriented x2. We will continue with her antibiotics, Maxipime and vancomycin a per her PCP for her sepsis. GI prophylaxis Protonix 40 mg IV BID, she is also on vitamin K 10 mg in normal saline at 50 mls/hour for her coagulopathy. We will continue to monitor her CBC, BMP and follow the plan of care per PCP and the oncologist. This plan was discussed with Dr. Prajapati. Please call us for any further questions or concerns. Dictated by SUHA Lei for Sveta Prajapati MD cc: Sveta Prajapati MD [facility]
[2019-02-01] MEDS: SODIUM CHLORIDE 0.9% INJ PRN (21:15)
[2019-02-01] MEDS: PHENERGAN IV PRN (21:15)
[2019-02-02] MEDS: CLINIMIX E 4.25%-5% SOLUTION 1,000 ML IV SCH ×2 (08:00→20:50)
[2019-02-02] MEDS: MAXIPIME 1 GM in NS 50 ML IV SCH ×2 (08:09→20:50)
[2019-02-02] MEDS: SODIUM CHLORIDE 0.9% INJ SCH ×2 (08:12→20:50)
[2019-02-02] MEDS: XANAX XR PO SCH (08:12)
[2019-02-02] MEDS: LACTULOSE PO SCH ×3 (08:12→16:41)
[2019-02-02] MEDS: PROTONIX IV SCH ×2 (08:12→20:50)
[2019-02-02] MEDS: XIFAXAN PO SCH ×2 (08:13→20:50)
[2019-02-02] MEDS: VITAMIN K 10 MG in NS 50 ML IV SCH (08:13)
[2019-02-02] MEDS: NEURONTIN PO SCH ×2 (08:13→20:50)
--- NOTE | 2019-02-02 10:27 | PROGRESS NOTE ---
DATE: 02/02/2019 SUBJECTIVE: Ms. Bedolla is awake and alert. She seemed to have a good night. Breathing comfortably. OBJECTIVE: Vital Signs: Temp 99.1 degrees, pulse 85, respirations 15, blood pressure 156/72. HEENT: Pupils are equal and round. Lungs: Clear in all lung [place]. Cardiovascular: Regular rhythm and rate without murmur or S3. Abdomen: Soft. Skin: Warm and dry. Urine output is almost 2 L, urine output good. ASSESSMENT AND PLAN: 1. Presented with sepsis. 2. Hepatic encephalopathy as well as other factors contributing to encephalopathy. 3. Pancreatic cancer, status post Whipple surgery done in [place] with partial hepatectomy. 4. Urinary tract infection. Seems to be improved. 5. Anemia, stable. 6. Severe protein malnutrition. 7. Coagulopathy. She is eating a little better. She seems to be more awake. She is on lactulose and Xifaxan. Continue physical therapy. She is on Maxipime and vancomycin, and on Protonix 40 mg twice a day. She may be able to move to the floor. Will see how she does. Continue soft gastrointestinal diet, present measures. cc: Son Snow MD
[2019-02-02] MEDS: VANCOMYCIN 1,500 MG in NS 250 ML IV SCH (12:04)
--- NOTE | 2019-02-02 12:52 | HEMO/ONC PROGRESS NOTE ---
DATE: 02/02/2019 SUBJECTIVE: Ms. Bedolla is sitting up in bed, eating breakfast. She states that she feels a lot better and that her appetite has returned. She has no complaints today. She is completely awake and alert. She had a good night's sleep. She has no complaints today. OBJECTIVE: Vital Signs: Temperature 99.1 degrees, pulse rate 84, respiratory rate 16, blood pressure 137/86, O2 saturation 94% on room air. The patient is in 0/10 pain. General: Elderly- appearing female in no acute distress. HEENT: Sclerae is anicteric. PERRLA. Oral mucosa is normal. Respiratory: Lungs are clear to auscultation. Normal respiratory effort. Cardiovascular: Normal S1, S2. Heart rate and rhythm is regular. Abdomen: Soft, nontender, nondistended. Skin: Warm and dry. No petechiae or ecchymosis noted. Neurological: Awake, alert, and oriented x3. No focal motor deficits. LABORATORY DATA: No labs drawn today. ASSESSMENT: 1. Pancreatic cancer, status post Whipple and completed treatment with partial hepatectomy earlier this year in [place]. The patient presented with sepsis and hepatic encephalopathy in the setting of Enterobacter urinary tract infection bacteremia. We have obtained the patient's records, and are aware of her prior treatments and plan of care. The patient has completed her chemotherapy in November, and has a 3-month followup appointment scheduled with her oncologist at [facility]. The patient seems interested in possibly pursuing further followup locally. 2. Altered mental status. This has resolved. This was most likely related to her toxic encephalopathy. 3. Disposition. We have offered to follow up with the patient regarding her cancer diagnosis. Please continue to follow management per medical and Gastroenterology. We will follow along peripherally as needed. Please let us know if you have any questions. Dictated by SUHA Ward for Luis M Andrea MD cc: Luis M Andrea MD [facility]
--- NOTE | 2019-02-02 13:57 | GASTROENTEROLOGY PROGRESS NOTE ---
DATE: 02/02/2019 SUBJECTIVE: Ms. Bedolla 78 year old female resting in bed. She was alert, oriented x3 and she was able to tolerate her breakfast well. She denied any nausea, vomiting, but had generalized abdominal tenderness. OBJECTIVE: Vital signs: Temperature 99.1 degrees, pulse is 84, respirations 16, blood pressure is 137/86, oxygen saturation is 94% on room air. General: She is alert, oriented x3, and in no acute distress. Answering questions appropriately. Her weight is 174.9, BMI is 32.1. HEENT: Pale conjunctivae. No icterus. PERRL. Neck: Supple. Lungs: Clear to auscultation bilaterally. Normal breath sounds heard. Cardiac: Regular rate and rhythm. No murmurs, rubs, or gallops heard on auscultation. Abdomen: Soft, distended, generalized tenderness. Surgical incision post Whipple procedure. Active bowel sounds heard in all 4 quadrants. Extremities: No clubbing, no cyanosis, no edema noted. 2+ pedal pulses present bilaterally. Neurological: Alert, oriented x3. LABORATORY DATA: From 01/30/2019 WBC of 9.30, RBC 3.14, hemoglobin 9.4, hematocrit is 27.4, platelet count is 140,000. PT is 24.1, INR is 2.11, Sodium is 135, potassium is 4.8, chloride is 106, carbon dioxide 22, anion gap is 7, BUN is 22, creatinine is 0.6. AST 37, ALT 11, alkaline phosphate is 86. IMAGING: Chest x-ray from 01/31/2019 showed negative exam. IMPRESSION AND PLAN: Sepsis Hepatic encephalopathy Pancreatic cancer S/P Whipple surgery done in [place] UTI Anemia Severe protein malnutrition Coagulopathy PLAN: The patient was able to tolerate her breakfast well. She denied any nausea or vomiting. She is on IV fluids, Clinimix and lipids for her nutrition. Her nausea and vomiting has been improved, but we will still continue Zofran and Phenergan PRN. She is on lactulose and Xifaxan for her hepatic encephalopathy. Her neurological status has been improved. She is alert, oriented x3, and has been answering all the questions appropriately. She is on GI prophylaxis, Protonix IV twice a day, vitamin K 10 mg for her coagulopathy, antibiotic vancomycin and Maxipime for her sepsis. We will continue to monitor her CBC B & BMP, continue to follow the plan of care per her PCP and oncologist. This plan was discussed with Dr. Yu. Please call us with any further questions or concerns. Dictated by SUHA Lei for Andrzej Yu MD cc: Andrzej Yu MD Patient seen and examined and I agree with the above plan of care. Discussed the above plan of care with the patient and all questions were answered. Please call us with any further questions. JORGE ALBERTO
--- NOTE | 2019-02-03 09:14 | PROGRESS NOTE ---
DATE: 02/03/2019 SUBJECTIVE: Ms. Bedolla is awake, alert, pleasant, and she would like to move to the floor. OBJECTIVE: Vital Signs: Temp 97.7 degrees, pulse 80, respirations 15, blood pressure 121/69. HEENT: Pupils are equal and round. Lungs: Clear in all lung [place]. Cardiovascular: Regular rhythm and rate without murmur or S3. Abdomen: Soft. Skin: Warm and dry. Urine output is 1800 mL. ASSESSMENT AND PLAN: 1. Pancreatic cancer, status post Whipple's. Completed treatment with partial hepatectomy earlier in [place]. Presented with sepsis, hepatic encephalopathy in the setting of Enterobacter urinary tract infection bacteremia. The patient had completed chemotherapy in November, had a 3-month followup appointment scheduled with his oncologist at [facility], and she seems interested in possibly pursuing followup locally. 2. Altered mental status, which is multifactorial global encephalopathy, which is improved. 3. Nutrition she is getting. Oral intake is markedly improved. Will see if we can move her to the floor, with plans hopefully of maybe getting her home in the near future. cc: Son Snow MD
[2019-02-03] MEDS: LACTULOSE PO SCH ×3 (09:27→16:45)
[2019-02-03] MEDS: MAXIPIME 1 GM in NS 50 ML IV SCH ×2 (09:27→20:21)
[2019-02-03] MEDS: NEURONTIN PO SCH ×2 (09:28→20:21)
[2019-02-03] MEDS: XIFAXAN PO SCH ×2 (09:28→20:21)
[2019-02-03] MEDS: XANAX XR PO SCH (09:28)
[2019-02-03] MEDS: PROTONIX IV SCH ×2 (09:28→20:21)
[2019-02-03] MEDS: SODIUM CHLORIDE 0.9% INJ SCH ×2 (09:29→20:21)
[2019-02-03] MEDS: VITAMIN K 10 MG in NS 50 ML IV SCH (09:41)
[2019-02-03] MEDS: CLINIMIX E 4.25%-5% SOLUTION 1,000 ML IV SCH ×2 (13:15→23:50)
[2019-02-03] MEDS: VANCOMYCIN 1,500 MG in NS 250 ML IV SCH (13:17)
--- NOTE | 2019-02-03 13:21 | GASTROENTEROLOGY PROGRESS NOTE ---
DATE: 02/03/2019 SUBJECTIVE: Ms. Bedolla is a 78-year-old female resting in bed. Family at the bedside. She is alert, oriented x3, and has been able to eat her breakfast well. She has denied any nausea, vomiting. She is moving her bowels with Lactulose. OBJECTIVE: Vital Signs: Temperature 97.7 degrees, pulse is 80, respiration 15, blood pressure is 131/69, oxygen saturation 97% on room air. Her weight is 178.8 pounds. BMI is 32.8 kg/m2. General: She is alert, oriented x3, and in no acute distress. HEENT: Pale conjunctivae. No icterus. PERRL. Neck: Supple. Lungs: Clear to auscultation bilaterally. Normal breath sounds heard. Cardiac: Regular rate and rhythm. No murmurs, rubs, or gallops heard on auscultation. Abdomen: Soft, distended. Surgical incision post Whipple procedure. Non tender. Active bowel sounds heard in all 4 quadrants. Extremities: No clubbing, no cyanosis, no edema noted. 2+ pedal pulses present. Neurologic: Alert, oriented x3. LABORATORY DATA: Her labs from 01/30/2019 WBCs 9.3, RBC 3.14, hemoglobin 9.4, hematocrit 27.4, platelet count of 140,000. PT 24.1, INR is 2.11, sodium is 135, potassium is 4.8, chloride is 106, carbon dioxide 22, anion gap 7, BUN 22, creatinine 0.6. AST 37, ALT 11. Calcium is 8.2, and glucose 145. IMAGING: Chest x-ray on 01/31/2019 showed negative exam. IMPRESSION: 1. Sepsis. 2. Likely Fatty liver cirrhosis complicated with coagulopathy, Hepatic encephalopathy. 3. Pancreatic cancer status post Whipple surgery in [place]. 4. Urinary tract infection. 5. Anemia. 6. Severe protein malnutrition. 7. Coagulopathy. PLAN: The patient is able to tolerate her diet well. She has denied any nausea or vomiting. She is on IV fluids, Clinimix and lipids for nutrition. Her nausea and vomiting has been improved. We will still continue with Zofran and Phenergan PRN, Continue her lactulose and Xifaxan for her hepatic encephalopathy. GI prophylaxis Protonix twice a day. Vitamin K 10 mg for coagulopathy, she is receiving antibiotics vancomycin and Maxipime for her sepsis. We will continue to monitor her CBC and BMP, and also follow the plan of care per her PCP and her oncologist. This plan was discussed with Dr. Yu. Please call us with any further questions or concerns. Dictated by SUHA Lei for Andrzej Yu MD cc: Andrzej Yu MD I have seen and examined the patient myself and I agree with the above plan of care. Discussed the above with the patient and family at bedside and all questions were answered. Please call us with any further questions. JORGE ALBERTO
[2019-02-04] MEDS: PROTONIX IV SCH (10:08)
[2019-02-04] MEDS: XIFAXAN PO SCH (10:09)
[2019-02-04] MEDS: XANAX XR PO SCH (10:09)
[2019-02-04] MEDS: MAXIPIME 1 GM in NS 50 ML IV SCH (10:09)
[2019-02-04] MEDS: LACTULOSE PO SCH (10:09)
[2019-02-04] MEDS: SODIUM CHLORIDE 0.9% INJ SCH (10:09)
--- NOTE | 2019-02-04 10:14 | DISCHARGE SUMMARY ---
ADMISSION DATE: 01/25/2019 DISCHARGE DATE: 02/04/2019 This is a 78-year-old patient of Dr. Toro Anderson. History of pancreatic cancer status post Whipple procedure in [place] with partial hepatectomy. Presented to the emergency room via EMS. Family stated she had been altered mental status for 24 hours. Normally she turns off her phone to go to sleep in the afternoon, but they could not get a hold of her and found she was very confused. Ammonia level was 161. PAST MEDICAL HISTORY: 1. Pancreatic cancer status post Whipple's procedure with partial hepatectomy is my understanding. 2. Compression fracture in her back. 3. Hypertension. 4. Hyperlipidemia. 5. Hypothyroidism. PAST SURGICAL HISTORY: 1. Hysterectomy. 2. Bladder surgery. 3. Cataract surgery. 4. Right knee surgery. 5. Status post Whipple's procedure. ALLERGIES: To Vioxx, Ditropan and sulfa. ADMISSION DIAGNOSES: 1. Metabolic encephalopathy, global encephalopathy, underlying pancreatic cancer, elevated ammonia level and suspected infection. 2. Compression fracture approximately 6 weeks ago. 3. Hypertension. Plan is to watch blood pressure and control. 4. Possible urinary tract infection. 5. Acute kidney injury. 6. Elevated ammonia levels. 7. Hypothyroidism. 8. Hypotension. The abdominal and pelvic CT showed ascites and small pleural effusions and anasarca, severe hepatic steatosis and diverticulosis coli. Chest x-ray negative exam. She continued to be obtunded and we started on lactulose and Xifaxan. Treated for urinary tract infection. [place] she had possible sepsis. She had urine culture showed gram-negative rods and she had been on ceftriaxone. Neurology was asked to see. GI was following. She showed steady, eventually showed improvement, awake and alert, was able to start eating and felt she had underlying steatohepatitis and some cirrhosis. She was alert and oriented x3, cooperative, able to start physical therapy and they wanted to go to rehab. Plan is to go to rehab hopefully today 02/04/2019. She will have her Xanax 0.5 mg daily, Clinimix. We will stop her Neurontin 300 mg b.i.d., lactulose 30 mL t.i.d. I think we can stop the lactulose enemas and then Protonix she will take 40 mg p.o. once a day, Xifaxan 550 mg b.i.d., Zanaflex 4 mg p.o. t.i.d. We will stop her vancomycin. cc: Son Snow MD
[2019-02-04] MEDS: NEURONTIN PO SCH (10:22)
[2019-02-04] MEDS: DUONEB (A & A) INH PRN (10:32)
[2019-02-04] MEDS: ZOFRAN IV PRN (11:11)
[2019-02-04 11:32] VITALS: BP 146/91
[2019-02-04] MEDS: VANCOMYCIN 1,500 MG in NS 250 ML IV SCH (12:38)
[2019-02-04] MEDS ORDERED: FLU VACCINE IM ONE (12:38)
--- NOTE | 2019-02-04 12:47 | GASTROENTEROLOGY PROGRESS NOTE ---
DATE: 02/04/2019 SUBJECTIVE: Ms. Bedolla is a 78-year-old female resting in bed. Denied any nausea, vomiting or diarrhea. She does have bowel movements which are liquid in consistency due to the lactulose. OBJECTIVE: Vital Signs: Temperature 98.0 degrees, pulse 86, respirations 19, blood pressure is 133/74, oxygen saturation 98%. She is on room air. Her weight is 178.8 pounds. BMI is 32.8 kg/m2. General: She is alert and oriented x3, in no acute distress. HEENT: Pale conjunctivae. No icterus. PERRL. Neck: Supple. Lungs: Clear to auscultation bilaterally. Cardiac: Regular rate and rhythm. No murmurs, rubs, or gallops heard on auscultation. Abdomen: Soft, distended with generalized tenderness. Surgical incision post Whipple procedure. Active bowel sounds heard in all 4 quadrants. Extremities: No clubbing, no cyanosis. No edema noted. 2+ pedal pulses present bilaterally. Neurologic: Alert, oriented x3. LABORATORY DATA: WBC is 9.30, RBC 3.14, hemoglobin 9.4, hematocrit 27.4, platelet count 130,000. X-ray of 01/31/2019 showed negative exam. IMPRESSION AND PLAN: 1. Sepsis, likely fatty liver, cirrhosis complicated with coagulopathy, hepatic encephalopathy, pancreatic cancer, status post Whipple surgery in [place]. 2. Urinary tract infection. 3. Anemia. 4. Severe protein malnutrition. 5. Coagulopathy. PLAN: The patient is able to tolerate her diet fairly well. She has denied any nausea and vomiting. She is still on Clinimix for her nutrition. We will continue her with Protonix 40 mg IV every 12 hours and transition her to PO for 3 months. The patient is on lactulose and Xifaxan for her hepatic encephalopathy, we have asked the patient to continue taking it even after she gets discharged. She is on antibiotic vancomycin and Maxipime for her sepsis. The patient is supposed to get discharged today. We can follow up her as an outpatient when she is discharged. We will continue to follow the plan of care of the primary care provider and the oncologist. This plan was discussed with Dr. Prajapati. Please call us for any further questions or concerns. Dictated by SUHA Lei for Sveta Prajapati MD cc: Sveta Prajapati MD [facility]
== END 2019-02-04 12:47 | DRG 871 ==
LOC: SUPCPDRO → ED 12:10 → EDIPHOLD 18:38 → SUATTDRO 18:38 → ICU 21:16 → 3N 02-03 21:18
PROVIDERS: ATTEND Emergency Medicine